=== PATIENT | male | born 1955 | race American Indian/Alaskan Native ===

== ENCOUNTER → 2017-12-11 | Outpatient (CLI) | payer MEDICARE, OTHER ==
[2017-12-11 17:59] LABS: BASOPHILS ABSOLUTE AUTO 0.06 K/mm3 (0.00-0.23); BASOPHILS PERCENT AUTO 1 % (0-2); EOSINOPHILS ABSOLUTE AUTO 0.07 K/mm3 (0.00-0.68); EOSINOPHILS PERCENT AUTO 1 % (0-6); Hematocrit 42.5 % (37.0-53.0); Hemoglobin 14.2 g/dL (13.5-17.5); IMMATURE GRAN ABSOLUTE AUTO 0.03 K/mm3 (0.00-0.10); IMMATURE GRAN PERCENT AUTO 0 % (0-1); LYMPHOCYTES ABSOLUTE AUTO 1.99 K/mm3 (0.84-5.20); LYMPHOCYTES PERCENT AUTO 25 % (21-46); MONOCYTES ABSOLUTE AUTO 1.39 K/mm3 (0.16-1.47); MONOCYTES PERCENT AUTO 17 % (4-13); Mean Corpuscular HGB 32.3 pg (26.0-34.0); Mean Corpuscular HGB Conc 33.4 g/dL (31.5-36.5); Mean Corpuscular Volume 97 fL (80-100); Mean Platelet Volume 10.2 fL (9.1-12.4); NEUTROPHILS ABSOLUTE AUTO 4.55 K/mm3 (1.96-9.15); NEUTROPHILS PERCENT AUTO 56 % (41-73); Platelet Count 319 K/mm3 (150-400); RDW Coefficient Variation 12.3 % (11.7-14.2); RDW Standard Deviation 44.6 fL (35.1-46.3); Red Blood Cell Count 4.39 M/mm3 (4.30-5.90); White Blood Cell Count 8.09 K/mm3 (4.00-11.30)
[2017-12-11 18:41] LABS: Alanine Aminotransfer (ALT/SGP 24 U/L (12-78); Albumin, Blood 3.6 g/dL (3.4-5.0); Albumin/Globulin Ratio 0.8 (0.8-1.8); Alk Phos 83 U/L (50-136); Anion Gap 6 mmol/L (6-16); Aspartate Aminotrans (AST/SGOT 17 U/L (12-37); Bilirubin, Total 0.4 mg/dL (0.1-1.0); Blood Urea Nitrogen 15 mg/dL (8-24); Bun/Creatinine Ratio 17.5 (12.0-20.0); CHOL/HDL RATIO 2.9; CO2, Blood 29 mmol/L (21-32); Calcium, Blood 9.1 mg/dL (8.5-10.1); Chloride, Blood 97 mmol/L (98-108); Cholesterol 153 mg/dL (50-200); Creatinine, Blood 0.86 mg/dL (0.60-1.20); Free Thyroxine 0.96 ng/dL (0.70-1.60); Globulin, Blood 4.7 g/dL (2.2-4.0); Glomerular Filtration Rate >60 (60-); Glucose, Blood 87 mg/dL (70-99); HDL Cholesterol 52 mg/dL (>39); LDL/HDL RATIO 1.7; Low Density Lipoprotein Chol 86 mg/dL (0-110); Potassium, Blood 4.6 mmol/L (3.5-5.5); Sodium, Blood 132 mmol/L (136-145); Total Protein, Blood 8.3 g/dL (6.4-8.2); Triglycerides 73 mg/dL (30-160); Very Low Density Lipoprot Chol 14 mg/dL (6-32)
== END | disposition home or self-care (01) ==
LOC: LAB 17:43 → LAB SHORT 17:43
PROVIDERS: Nurse Practitioner Adult Health
DX: J44.9 Chronic obstructive pulmonary disease, unspecified (principal); D64.9 Anemia, unspecified; I70.219 Atherosclerosis of native arteries of extremities with intermittent claudication, unspecified extremity; I10 Essential (primary) hypertension; R56.9 Unspecified convulsions; Z87.820 Personal history of traumatic brain injury
CPT/HCPCS: 80053; 80061; 84439; 84443; 85025

== ENCOUNTER 2018-01-02 11:28 | Inpatient (IN) | payer MEDICARE, OTHER ==
[~2018-01-02] VITALS: Ht 172.7 cm; Wt 86.2 kg
[2018-01-02] MEDS ORDERED: ALBU90OI6 INH (12:06)
[2018-01-02] MEDS ORDERED: FLUT1DIS8 INH (12:07)
[2018-01-02] MEDS ORDERED: ASPI81CH PO (12:07)
[2018-01-02] MEDS ORDERED: ZESTORETIC 20-121 EA (12:07)
[2018-01-02] MEDS ORDERED: BUDE6HFA INH (12:07)
[2018-01-02] MEDS ORDERED: DIVA500EC PO (12:08)
[2018-01-02] MEDS ORDERED: HYDCHL12.5 PO (12:08)
[2018-01-02 12:18] LABS: BASOPHILS ABSOLUTE AUTO 0.06 K/mm3 (0.00-0.23); BASOPHILS PERCENT AUTO 1 % (0-2); EOSINOPHILS ABSOLUTE AUTO 0.13 K/mm3 (0.00-0.68); EOSINOPHILS PERCENT AUTO 1 % (0-6); Hematocrit 37.8 % (37.0-53.0); Hemoglobin 12.7 g/dL (13.5-17.5); IMMATURE GRAN ABSOLUTE AUTO 0.05 K/mm3 (0.00-0.10); IMMATURE GRAN PERCENT AUTO 0 % (0-1); LYMPHOCYTES ABSOLUTE AUTO 2.33 K/mm3 (0.84-5.20); LYMPHOCYTES PERCENT AUTO 20 % (21-46); MONOCYTES PERCENT AUTO 16 % (4-13); Mean Corpuscular HGB 32.4 pg (26.0-34.0); Mean Corpuscular HGB Conc 33.6 g/dL (31.5-36.5); Mean Corpuscular Volume 96 fL (80-100); Mean Platelet Volume 8.9 fL (9.1-12.4); NEUTROPHILS ABSOLUTE AUTO 7.14 K/mm3 (1.96-9.15); NEUTROPHILS PERCENT AUTO 62 % (41-73); Platelet Count 344 K/mm3 (150-400); RDW Coefficient Variation 11.9 % (11.7-14.2); RDW Standard Deviation 42.5 fL (35.1-46.3); Red Blood Cell Count 3.92 M/mm3 (4.30-5.90); White Blood Cell Count 11.51 K/mm3 (4.00-11.30)
[2018-01-02 12:36] LABS: Alanine Aminotransfer (ALT/SGP 20 U/L (12-78); Albumin, Blood 3.5 g/dL (3.4-5.0); Albumin/Globulin Ratio 0.7 (0.8-1.8); Alk Phos 70 U/L (50-136); Anion Gap 9 mmol/L (6-16); Aspartate Aminotrans (AST/SGOT 12 U/L (12-37); Bilirubin, Total 0.4 mg/dL (0.1-1.0); Blood Urea Nitrogen 21 mg/dL (8-24); Bun/Creatinine Ratio 25.7 (12.0-20.0); CO2, Blood 27 mmol/L (21-32); Calcium, Blood 8.9 mg/dL (8.5-10.1); Chloride, Blood 95 mmol/L (98-108); Creatinine, Blood 0.82 mg/dL (0.60-1.20); Globulin, Blood 4.9 g/dL (2.2-4.0); Glomerular Filtration Rate >60 (60-); Glucose, Blood 83 mg/dL (70-99); Potassium, Blood 4.1 mmol/L (3.5-5.5); Sodium, Blood 131 mmol/L (136-145); Total Protein, Blood 8.4 g/dL (6.4-8.2)
[2018-01-03 05:19] LABS: BASOPHILS ABSOLUTE AUTO 0.04 K/mm3 (0.00-0.23); BASOPHILS PERCENT AUTO 1 % (0-2); EOSINOPHILS ABSOLUTE AUTO 0.16 K/mm3 (0.00-0.68); EOSINOPHILS PERCENT AUTO 2 % (0-6); Hematocrit 33.4 % (37.0-53.0); Hemoglobin 11.5 g/dL (13.5-17.5); IMMATURE GRAN ABSOLUTE AUTO 0.04 K/mm3 (0.00-0.10); IMMATURE GRAN PERCENT AUTO 1 % (0-1); LYMPHOCYTES ABSOLUTE AUTO 1.61 K/mm3 (0.84-5.20); LYMPHOCYTES PERCENT AUTO 19 % (21-46); MONOCYTES ABSOLUTE AUTO 1.59 K/mm3 (0.16-1.47); MONOCYTES PERCENT AUTO 19 % (4-13); Mean Corpuscular HGB Conc 34.4 g/dL (31.5-36.5); NEUTROPHILS ABSOLUTE AUTO 4.96 K/mm3 (1.96-9.15); NEUTROPHILS PERCENT AUTO 59 % (41-73); Platelet Count 298 K/mm3 (150-400); RDW Coefficient Variation 11.9 % (11.7-14.2); Red Blood Cell Count 3.59 M/mm3 (4.30-5.90)
[2018-01-03 05:23] LABS: Mean Corpuscular Volume 93 fL (80-100)
[2018-01-03 05:40] LABS: Alanine Aminotransfer (ALT/SGP 15 U/L (12-78); Albumin/Globulin Ratio 0.7 (0.8-1.8); Alk Phos 59 U/L (50-136); Anion Gap 10 mmol/L (6-16); Aspartate Aminotrans (AST/SGOT 12 U/L (12-37); Bilirubin, Total 0.6 mg/dL (0.1-1.0); Blood Urea Nitrogen 17 mg/dL (8-24); Bun/Creatinine Ratio 21.1 (12.0-20.0); CO2, Blood 26 mmol/L (21-32); Calcium, Blood 8.2 mg/dL (8.5-10.1); Chloride, Blood 94 mmol/L (98-108); Creatinine, Blood 0.81 mg/dL (0.60-1.20); Globulin, Blood 4.1 g/dL (2.2-4.0); Glomerular Filtration Rate >60 (60-); Glucose, Blood 89 mg/dL (70-99); Potassium, Blood 3.7 mmol/L (3.5-5.5); Sodium, Blood 130 mmol/L (136-145); Total Protein, Blood 7.1 g/dL (6.4-8.2)
[2018-01-04] MEDS ORDERED: CEPH500 PO (11:40)
== END 2018-01-04 13:54 | disposition home health service (06) | DRG 603 ==
LOC: ER 11:28 → MEDS 14:53 → ENPENDDIS 01-04 11:35 → MEDS 01-04 13:54
PROVIDERS: Emergency Medicine; Internal Medicine
DX: L03.116 Cellulitis of left lower limb (principal); E87.1 Hypo-osmolality and hyponatremia; B87.1 Wound myiasis; B95.61 Methicillin susceptible Staphylococcus aureus infection as the cause of diseases classified elsewhere; J44.9 Chronic obstructive pulmonary disease, unspecified; I10 Essential (primary) hypertension; G40.909 Epilepsy, unspecified, not intractable, without status epilepticus; R62.50 Unspecified lack of expected normal physiological development in childhood; Z79.899 Other long term (current) drug therapy; Z87.891 Personal history of nicotine dependence; Z79.82 Long term (current) use of aspirin
CPT/HCPCS: 36415; 73620; 73701; 80053; 83605; 85025; 85651; 86140; 87040; 87070; 87077; 87147; 87186; 87205; 94640; 94760; 96365; 99285-25; J1650; J3370; J7030; J7050; Q9967

== ENCOUNTER → 2018-07-04 | Outpatient (CLI) | payer MEDICARE, OTHER ==
[~2018-07-04] MED LIST: ALBU90OI6 INH; ASPI81CH PO; BUDE6HFA INH; CEPH500 PO; DIVA500EC PO; FLUT1DIS8 INH; HYDCHL12.5 PO; ZESTORETIC 20-121 EA
[2018-07-04 19:04] LABS: Anion Gap 7 mmol/L (6-16); Blood Urea Nitrogen 12 mg/dL (8-24); Bun/Creatinine Ratio 14.3 (12.0-20.0); CO2, Blood 28 mmol/L (21-32); Calcium, Blood 9.4 mg/dL (8.5-10.1); Chloride, Blood 97 mmol/L (98-108); Creatinine, Blood 0.84 mg/dL (0.60-1.20); Glomerular Filtration Rate >60 (60-); Glucose, Blood 77 mg/dL (70-99); Sodium, Blood 132 mmol/L (136-145)
== END ==
LOC: LAB SHORT 09:28 → LAB 09:28
PROVIDERS: Nurse Practitioner Family
DX: E87.1 Hypo-osmolality and hyponatremia (principal)
CPT/HCPCS: 80048

== ENCOUNTER 2018-07-09 11:54 | Day surgery (SDC) | payer MEDICARE, OTHER | END 2018-07-09 22:36 | disposition home or self-care (01) | LOC: WOUND 11:54 | PROC: 0HBLXZZ Excision of Left Lower Leg Skin, External Approach (ICD-10-PCS; principal; 2018-07-09) | DX: L03.116 Cellulitis of left lower limb (principal); I10 Essential (primary) hypertension ==

== ENCOUNTER 2018-07-23 00:14 | Day surgery (SDC) | payer MEDICARE, OTHER | END 2018-07-23 23:00 | disposition home or self-care (01) | LOC: WOUND 00:14 | DX: L97.322 Non-pressure chronic ulcer of left ankle with fat layer exposed (principal); I87.2 Venous insufficiency (chronic) (peripheral); I10 Essential (primary) hypertension; Z79.82 Long term (current) use of aspirin | CPT/HCPCS: G0463 ==

== ENCOUNTER 2018-07-31 12:10 | Day surgery (SDC) | payer MEDICARE, OTHER | END 2018-07-31 22:46 | disposition home or self-care (01) | LOC: WOUND 12:10 | DX: L97.322 Non-pressure chronic ulcer of left ankle with fat layer exposed (principal); I87.2 Venous insufficiency (chronic) (peripheral) ==

== ENCOUNTER 2018-08-07 12:30 | Day surgery (SDC) | payer MEDICARE, OTHER | END 2018-08-07 22:59 | disposition home or self-care (01) | LOC: WOUND 12:30 | DX: L97.322 Non-pressure chronic ulcer of left ankle with fat layer exposed (principal); I87.2 Venous insufficiency (chronic) (peripheral) | CPT/HCPCS: G0463 ==

== ENCOUNTER 2018-08-09 12:30 | Day surgery (SDC) | payer MEDICARE, OTHER | END 2018-08-09 22:53 | disposition home or self-care (01) | LOC: WOUND 12:30 | DX: L97.322 Non-pressure chronic ulcer of left ankle with fat layer exposed (principal); I87.2 Venous insufficiency (chronic) (peripheral); J44.9 Chronic obstructive pulmonary disease, unspecified; I10 Essential (primary) hypertension; G40.909 Epilepsy, unspecified, not intractable, without status epilepticus ==

== ENCOUNTER 2018-08-14 12:20 | Day surgery (SDC) | payer MEDICARE, OTHER | END 2018-08-14 22:46 | disposition home or self-care (01) | LOC: WOUND 12:20 | DX: L97.322 Non-pressure chronic ulcer of left ankle with fat layer exposed (principal); I87.2 Venous insufficiency (chronic) (peripheral) ==

== ENCOUNTER 2018-08-21 00:32 | Day surgery (SDC) | payer MEDICARE, OTHER | END 2018-08-21 22:43 | disposition home or self-care (01) | LOC: WOUND 00:32 | DX: L97.322 Non-pressure chronic ulcer of left ankle with fat layer exposed (principal); I87.2 Venous insufficiency (chronic) (peripheral); J44.9 Chronic obstructive pulmonary disease, unspecified; I10 Essential (primary) hypertension | CPT/HCPCS: G0463 ==

== ENCOUNTER 2018-09-11 00:29 | Day surgery (SDC) | payer MEDICARE, OTHER | END 2018-09-11 22:48 | disposition home or self-care (01) | LOC: WOUND 00:29 | DX: L97.322 Non-pressure chronic ulcer of left ankle with fat layer exposed (principal); I87.2 Venous insufficiency (chronic) (peripheral); I25.10 Atherosclerotic heart disease of native coronary artery without angina pectoris; I10 Essential (primary) hypertension; J44.9 Chronic obstructive pulmonary disease, unspecified; D64.9 Anemia, unspecified; G40.909 Epilepsy, unspecified, not intractable, without status epilepticus; Z87.820 Personal history of traumatic brain injury | CPT/HCPCS: G0463 ==

== ENCOUNTER → 2019-04-09 | Outpatient (CLI) | payer OTHER ==
[2019-04-09 20:11] LABS: BASOPHILS ABSOLUTE AUTO 0.05 K/mm3 (0.00-0.23); BASOPHILS PERCENT AUTO 1 % (0-2); EOSINOPHILS ABSOLUTE AUTO 0.22 K/mm3 (0.00-0.68); EOSINOPHILS PERCENT AUTO 2 % (0-6); Hematocrit 47.2 % (37.0-53.0); Hemoglobin 15.2 g/dL (13.5-17.5); IMMATURE GRAN ABSOLUTE AUTO 0.03 K/mm3 (0.00-0.10); IMMATURE GRAN PERCENT AUTO 0 % (0-1); LYMPHOCYTES ABSOLUTE AUTO 2.83 K/mm3 (0.84-5.20); LYMPHOCYTES PERCENT AUTO 29 % (21-46); MONOCYTES ABSOLUTE AUTO 1.39 K/mm3 (0.16-1.47); MONOCYTES PERCENT AUTO 14 % (4-13); Mean Corpuscular HGB 32.3 pg (26.0-34.0); Mean Corpuscular HGB Conc 32.2 g/dL (31.5-36.5); Mean Corpuscular Volume 100 fL (80-100); Mean Platelet Volume 11.6 fL (9.1-12.4); NEUTROPHILS ABSOLUTE AUTO 5.35 K/mm3 (1.96-9.15); NEUTROPHILS PERCENT AUTO 54 % (41-73); Platelet Count 250 K/mm3 (150-400); RDW Coefficient Variation 12.2 % (11.7-14.2); RDW Standard Deviation 45.8 fL (35.1-46.3); Red Blood Cell Count 4.71 M/mm3 (4.30-5.90); White Blood Cell Count 9.87 K/mm3 (4.00-11.30)
[2019-04-09 20:27] LABS: Alanine Aminotransfer (ALT/SGP 34 U/L (12-78); Albumin, Blood 3.5 g/dL (3.4-5.0); Albumin/Globulin Ratio 0.8 (0.8-1.8); Alk Phos 69 U/L (50-136); Anion Gap 3 mmol/L (6-16); Aspartate Aminotrans (AST/SGOT 28 U/L (12-37); Bilirubin, Total 0.3 mg/dL (0.1-1.0); Blood Urea Nitrogen 19 mg/dL (8-24); Bun/Creatinine Ratio 25.5 (12.0-20.0); CO2, Blood 31 mmol/L (21-32); Calcium, Blood 9.5 mg/dL (8.5-10.1); Chloride, Blood 105 mmol/L (98-108); Creatinine, Blood 0.75 mg/dL (0.60-1.20); Globulin, Blood 4.2 g/dL (2.2-4.0); Glomerular Filtration Rate >60 (60-); Glucose, Blood 99 mg/dL (70-99); Sodium, Blood 139 mmol/L (136-145); Total Protein, Blood 7.7 g/dL (6.4-8.2); Valproic Acid 87.8 ug/mL (50.0-100.0)
== END | disposition home or self-care (01) ==
LOC: LAB SHORT 19:35 → LAB 19:35
PROVIDERS: Nurse Practitioner Family
DX: R56.9 Unspecified convulsions (principal); R53.83 Other fatigue
CPT/HCPCS: 80053; 80164; 84443; 85025

== ENCOUNTER → 2023-07-06 | Outpatient (CLI) | payer OTHER ==
[2023-07-10 16:20] LABS: HOURS COLLECTED 24 hr; TOTAL PROTEIN,URINE-PER VOLUME 5 mg/dL; TOTAL VOLUME 975 mL; URINE 24 HOUR PROTEIN 49 mg/d (40-150)
== END ==
LOC: LAB 09:30 → LAB SHORT 09:30
PROVIDERS: Family Medicine
DX: D47.2 Monoclonal gammopathy (principal)
CPT/HCPCS: 81050; 84156; 84166; 86335

== ENCOUNTER → 2023-07-19 | Outpatient (CLI) | payer OTHER ==
[2023-07-19 12:44] LABS: BASOPHILS ABSOLUTE AUTO 0.05 K/mm3 (0.00-0.23); BASOPHILS PERCENT AUTO 1 % (0-2); EOSINOPHILS ABSOLUTE AUTO 0.12 K/mm3 (0.00-0.68); EOSINOPHILS PERCENT AUTO 1 % (0-6); Hematocrit 43.6 % (37.0-53.0); Hemoglobin 14.1 g/dL (13.5-17.5); IMMATURE GRAN ABSOLUTE AUTO 0.04 K/mm3 (0.00-0.10); IMMATURE GRAN PERCENT AUTO 0 % (0-1); LYMPHOCYTES PERCENT AUTO 42 % (21-46); MONOCYTES ABSOLUTE AUTO 1.51 K/mm3 (0.16-1.47); MONOCYTES PERCENT AUTO 15 % (4-13); Mean Corpuscular HGB 31.1 pg (26.0-34.0); Mean Corpuscular HGB Conc 32.3 g/dL (31.5-36.5); Mean Corpuscular Volume 96 fL (80-100); Mean Platelet Volume 12.2 fL (9.1-12.4); NEUTROPHILS ABSOLUTE AUTO 4.29 K/mm3 (1.96-9.15); NEUTROPHILS PERCENT AUTO 42 % (41-73); Platelet Count 210 K/mm3 (150-400); RDW Standard Deviation 56.4 fL (35.1-46.3); Red Blood Cell Count 4.53 M/mm3 (4.30-5.90); White Blood Cell Count 10.31 K/mm3 (4.00-11.30)
[2023-07-19 13:30] LABS: CHOL/HDL RATIO 2.4; Cholesterol 139 mg/dL (50-200); HDL Cholesterol 57 mg/dL (>39); Low Density Lipoprotein Chol 60 mg/dL (0-110); Triglycerides 112 mg/dL (30-160); Very Low Density Lipoprot Chol 22 mg/dL (6-32)
[2023-07-20 14:11] LABS: A/G RATIO 1.2 (1.2-2.2); BILIRUBIN, TOTAL 0.4 mg/dL (0.0-1.2); CALCIUM, SERUM 9.7 mg/dL (8.6-10.2); CREATININE, SERUM 0.9 mg/dL (0.76-1.27); GLOBULIN, TOTAL 3.4 g/dL (1.5-4.5); POTASSIUM, SERUM 4.3 mmol/L (3.5-5.2); PROTEIN, TOTAL, SERUM 7.6 g/dL (6.0-8.5)
== END | disposition home or self-care (01) ==
LOC: LAB 11:58 → LAB SHORT 11:58
PROVIDERS: Family Medicine
DX: Z51.81 Encounter for therapeutic drug level monitoring (principal); Z79.899 Other long term (current) drug therapy
CPT/HCPCS: 80053; 80061; 82306; 84443; 85025

== ENCOUNTER 2023-12-18 09:30 | Day surgery (SDC) | payer OTHER ==
[2023-12-18] VITALS (20 sets, daily range): BP systolic 63–145; BP diastolic 46–112
[~2023-12-18] VITALS: Ht 172.7 cm; Wt 82.1 kg
[~2023-12-18 09:30] MED LIST changes: +ATOR40TA PO; +FURO20 PO; +Lactated Ringer's 1,000 ML IV SCH; +POTA10T PO
--- NOTE | 2023-12-18 10:46 | NUR ---
PT TO SDS VIA WC. PT ABLE TO STAND FOR HEIGHT AND WEIGHT WITH ASSISTANCE. History, Chart, Medications and Allergies reviewed before start of procedure WITH PT AND HIS CAREGIVER. PT IS A&[id number]. CAREGIVER STATES PT SIGNS HIS OWN CONSENTS AND IS NOT A POOR HISTORIAN. HE MAINLY UTILIZES CAREGIVER FOR PT AND OT. Patient confirms NPO status and agrees with scheduled surgery. Patient States Post-Procedure ride home has been arranged.
[2023-12-18] MEDS ORDERED: propofoL 40 ML IV ONE (10:56)
--- NOTE | 2023-12-18 11:11 | NUR ---
12/18/23 Yung Yu HISTORY, CHART, MEDICATIONS AND ALLERGIES REVIEWED BEFORE START OF PROCEDURE. PATIENT CONFIRMS NPO STATUS AND AGREES WITH SCHEDULED PROCEDURE. 3-LEAD EKG REVIEWED WITH PHYSICIAN PRIOR TO START OF PROCEDURE. MONITOR INTACT WITH CONTINUOUS PULSE OXIMETRY,CAPNOGRAPHY, 3-LEAD EKG, INTERMITTENT BP. SUPPLEMENTAL O2 TO BE TITRATED THROUGHOUT PROCEDURE TO MAINTAIN O2 SATURATION ABOVE 90%. PATIENT DETERMINED TO BE ASA APPROPRIATE FOR PROPOFOL SEDATION PRIOR TO START OF PROCEDURE BY DR. ANAYA.
--- NOTE | 2023-12-18 12:19 | NUR ---
Discharge instructions reviewed with patient. Patient verbalizes understanding. Copy given to patient to take home. Patient States Post-Procedure ride home has been arranged. Discharged via wheelchair to private car for ride home.
== END 2023-12-18 12:12 | disposition home or self-care (01) ==
LOC: ORSCMMR 09:30 → ORD 10:30 → ORSCMMR 10:30
PROVIDERS: Internal Medicine Gastroenterology
PROC: 0DBM8ZX Excision of Descending Colon, Via Natural or Artificial Opening Endoscopic, Diagnostic (ICD-10-PCS; principal; 2023-12-18 10:30)
PROC: 0DBK8ZX Excision of Ascending Colon, Via Natural or Artificial Opening Endoscopic, Diagnostic (ICD-10-PCS; principal; 2023-12-18 10:30)
DX: Z12.11 Encounter for screening for malignant neoplasm of colon (principal); Z86.010 Personal history of colon polyps; D12.2 Benign neoplasm of ascending colon; D12.4 Benign neoplasm of descending colon; G40.909 Epilepsy, unspecified, not intractable, without status epilepticus; I10 Essential (primary) hypertension; Z79.899 Other long term (current) drug therapy; Z87.891 Personal history of nicotine dependence; E78.00 Pure hypercholesterolemia, unspecified
CPT/HCPCS: 88305; J2704; J7120

== ENCOUNTER → 2024-07-23 | Outpatient (CLI) | payer OTHER ==
[~2024-07-23] MED LIST changes: -Lactated Ringer's 1,000 ML IV SCH
[2024-07-23 16:29] LABS: BASOPHILS ABSOLUTE AUTO 0.04 K/mm3 (0.00-0.23); BASOPHILS PERCENT AUTO 0 % (0-2); EOSINOPHILS ABSOLUTE AUTO 0.07 K/mm3 (0.00-0.68); EOSINOPHILS PERCENT AUTO 1 % (0-6); Hematocrit 47.6 % (37.0-53.0); Hemoglobin 15.5 g/dL (13.5-17.5); IMMATURE GRAN ABSOLUTE AUTO 0.02 K/mm3 (0.00-0.10); IMMATURE GRAN PERCENT AUTO 0 % (0-1); LYMPHOCYTES ABSOLUTE AUTO 4.09 K/mm3 (0.84-5.20); LYMPHOCYTES PERCENT AUTO 45 % (21-46); MONOCYTES ABSOLUTE AUTO 1.31 K/mm3 (0.16-1.47); MONOCYTES PERCENT AUTO 15 % (4-13); Mean Corpuscular HGB 31.2 pg (26.0-34.0); Mean Corpuscular HGB Conc 32.6 g/dL (31.5-36.5); Mean Corpuscular Volume 96 fL (80-100); Mean Platelet Volume 11.7 fL (9.1-12.4); NEUTROPHILS ABSOLUTE AUTO 3.47 K/mm3 (1.96-9.15); NEUTROPHILS PERCENT AUTO 39 % (41-73); Platelet Count 210 K/mm3 (150-400); RDW Coefficient Variation 15.6 % (11.7-14.2); RDW Standard Deviation 55.1 fL (35.1-46.3); Red Blood Cell Count 4.97 M/mm3 (4.30-5.90)
[2024-07-23 16:43] LABS: Alanine Aminotransfer (ALT/SGP 48 U/L (12-78); Albumin, Blood 3.4 g/dL (3.4-5.0); Albumin/Globulin Ratio 0.7 (0.8-1.8); Alk Phos 90 U/L (50-136); Anion Gap 11 mmol/L (3-11); Aspartate Aminotrans (AST/SGOT 38 U/L (12-37); Bilirubin, Total 0.4 mg/dL (0.1-1.0); Blood Urea Nitrogen 27 mg/dL (8-24); Bun/Creatinine Ratio 35.5 (12.0-20.0); CHOL/HDL RATIO 2.7; CO2, Blood 30 mmol/L (21-32); Calcium, Blood 9.5 mg/dL (8.5-10.1); Chloride, Blood 106 mmol/L (98-108); Cholesterol 135 mg/dL (50-200); Creatinine, Blood 0.76 mg/dL (0.60-1.20); Globulin, Blood 4.8 g/dL (2.2-4.0); Glomerular Filtration Rate 98 (60-); Glucose, Blood 75 mg/dL (70-99); HDL Cholesterol 50 mg/dL (>39); LDL/HDL RATIO 1.3; Low Density Lipoprotein Chol 63 mg/dL (0-110); PSA, %Free 53.3 %; PSA, Free 0.467 ng/mL; Potassium, Blood 4.3 mmol/L (3.5-5.5); Prostate Specific Antigen 0.876 ng/mL (0.000-4.000); Sodium, Blood 143 mmol/L (136-145); Total Protein, Blood 8.2 g/dL (6.4-8.2); Triglycerides 109 mg/dL (30-160); Very Low Density Lipoprot Chol 21 mg/dL (6-32)
[2024-07-25 12:12] LABS: HEPATITIS C AB CIA INTERP Negative (Negative); HEPATITIS C ANTIBODY CIA INDEX 0.14 IV
[2024-07-25 15:26] LABS: HIV 1,2 COMBO ANTIGEN/ANTIBODY Negative (Negative)
== END ==
LOC: LAB 15:11 → LAB SHORT 15:11
PROVIDERS: Family Medicine
DX: Z11.59 Encounter for screening for other viral diseases (principal); Z11.4 Encounter for screening for human immunodeficiency virus [HIV]; Z12.5 Encounter for screening for malignant neoplasm of prostate; E55.9 Vitamin D deficiency, unspecified; Z79.899 Other long term (current) drug therapy; R73.03 Prediabetes
CPT/HCPCS: 80053; 80061; 82306; 83036; 84153; 84154; 84443; 85025; 86803; 87389

== ENCOUNTER → 2025-05-18 | Outpatient (CLI) | payer OTHER ==
[2025-05-18 20:22] LABS: Anion Gap 4.0 mmol/L (3-11); Blood Urea Nitrogen 26.0 mg/dL (8-24); CO2, Blood 34.0 mmol/L (21-32); Calcium, Blood 9.2 mg/dL (8.5-10.1); Chloride, Blood 105.0 mmol/L (98-108); Creatinine, Blood 0.9 mg/dL (0.60-1.20); Glucose, Blood 88.0 mg/dL (70-99); Magnesium, Blood 1.9 mg/dL (1.6-2.4); Potassium, Blood 3.9 mmol/L (3.5-5.5); Sodium, Blood 139.0 mmol/L (136-145)
== END ==
LOC: LAB 14:17 → LAB SHORT 14:17
PROVIDERS: Family Medicine
DX: I50.32 Chronic diastolic (congestive) heart failure (principal)
CPT/HCPCS: 80048; 83735